=== PATIENT | female | born 1955 | race Caucasian/White ===

== ENCOUNTER 2022-04-11 07:32 | Outpatient (CLI) | payer OTHER, SELFPAY ==
[2022-04-11 09:32] LABS: Albumin* 4.2 g/dL (3.3-5.0); Chloride* 107 mmol/L (96-114)
[2022-04-11 09:33] LABS: Potassium* 4.1 mmol/L (3.6-5.1); Sodium* 138 mmol/L (135-149)
[2022-04-11 09:35] LABS: Aspartate Amino Transferase* 28 U/L (12-35); Bilirubin Total* 1.1 mg/dL (0.1-1.5); Carbon Dioxide* 27 mmol/L (20-32); Cholesterol* 178 mg/dL (90-199); Creatinine* 0.6 mg/dL (0.5-1.5); Estimated Glomerular Filt Rate 100 ml/min; Total Protein* 6.6 g/dL (6.0-8.3)
[2022-04-11 09:36] LABS: Alanine Aminotransferase* 20 U/L (4-35); Alkaline Phosphatase* 58 U/L (40-150); Blood Urea Nitrogen* 13 mg/dL (7-30); Calcium* 9.4 mg/dL (8.4-10.6); Glucose* 93 mg/dL (60-115); HDL Cholesterol* 87 mg/dL (>=50); LDL Cholesterol Calculated 78 mg/dL (<100); Triglycerides* 64 mg/dL (40-149)
== END 2022-04-11 07:33 | disposition home or self-care (01) ==
LOC: NFLDREF 07:32
PROVIDERS: PCP Family Medicine; Visit Provider Family Medicine
DX: Z00.00 Encounter for general adult medical examination without abnormal findings (principal); I10 Essential (primary) hypertension; E78.5 Hyperlipidemia, unspecified
CPT/HCPCS: 80053; 80061

== ENCOUNTER 2022-05-13 12:51 | Outpatient (CLI) | payer OTHER, SELFPAY ==
--- NOTE | 2022-05-13 13:00 | CRLHL7_ITS ---
For Patients: As a result of the Cures Act, medical imaging exams and procedure reports are released immediately into your electronic medical record. You may view this report before your referring provider. If you have questions, please contact your health care provider. BILATERAL SCREENING MAMMOGRAM WITH COMPUTER-AIDED DETECTION AND TOMOSYNTHESIS TECHNIQUE: CC and MLO views were obtained. These mammographic images have been obtained using full-field digital technique. These mammographic images were interpreted with the benefit of computer-aided detection. Breast Tomosynthesis was used in this interpretation. COMPARISON FILM: 05/01/21, 04/28/20, 04/26/19 FINDINGS: There are scattered areas of fibroglandular density IMPRESSION: There is no radiographic evidence for malignancy. ASSESSMENT: BI-RADS Category 1: Negative RECOMMENDATION: Routine screening mammogram in 1 year. A lay language report of this examination will be provided to the patient. Sunday Parnell M.D. Diagnostic Radiologist [email or web address] Transcribed: 2:52 p.mAmelia reyes/Dictated by: Sunday Parnell MD @ 05/14/2022 9:52:00 AM (Electronically Signed)
== END 2022-05-13 12:52 | disposition home or self-care (01) ==
LOC: MAMMO 12:52
PROVIDERS: PCP Family Medicine; Visit Provider Family Medicine
DX: Z12.31 Encounter for screening mammogram for malignant neoplasm of breast (principal)
CPT/HCPCS: 77063; 77067

== ENCOUNTER 2023-05-09 08:22 | Outpatient (CLI) | payer MEDICARE, BC, SELFPAY | END 2023-05-09 08:23 | disposition home or self-care (01) | PROVIDERS: PCP Family Medicine; Referring Provider Family Medicine; Visit Provider Family Medicine | DX: E78.5 Hyperlipidemia, unspecified (principal); I10 Essential (primary) hypertension; Z13.29 Encounter for screening for other suspected endocrine disorder | CPT/HCPCS: 80053; 80061; 84443 ==

== ENCOUNTER 2023-05-14 09:59 | Outpatient (CLI) | payer MEDICARE, BC, SELFPAY ==
--- NOTE | 2023-05-14 10:15 | MM_ITS ---
Final Report Patient: ANGELA PENA Facility:?[facility] Patient ID:?[id number] Site Patient ID:?[id number] Site :?[id number] Study:?XRay Breast Bilateral 3D W/CAD-05/14/2023 12:01:20 PM Ordering Physician:?Chloé Echevarria Final Report: BILATERAL DIGITAL TOMOSYNTHESIS SCREENING MAMMOGRAM WITH COMPUTER-AIDED DETECTION CLINICAL HISTORY: Routine screening exam. COMPARISON: 05/13/2022, 05/01/2021, 04/28/2020, 04/26/2019 TECHNIQUE: Digital tomosynthesis mammogram in CC and MLO projections including computer- aided detection (CAD). BREAST COMPOSITION: Scattered fibroglandular densities. FINDINGS: RIGHT Breast: Normal breast tissue. No masses or achritectural distortion. No suspicious calcifications or adenopathy. LEFT Breast: Normal breast tissue. No masses or achritectural distortion. No suspicious calcifications or adenopathy. IMPRESSION: No suspicious findings. RECOMMENDATIONS: Annual bilateral screening mammography. BI-RADS category 1. Negative. Dictated by Sunday Parnell MD @ 05/16/2023 11:52:07 AM (Electronic Signature)
--- NOTE | 2023-05-14 14:30 | XR_ITS ---
Patient: ANGELA PENA Facility:?[facility] Patient ID:?[id number] Site Patient ID:?[id number]. Site :?1955 Study:?DEXA-Bone Density -05/14/2023 10:48:37 AM Ordering Physician:TRU Final Report: DXA BONE MINERAL DENSITY STUDY Reason for exam: Asymptomatic menopausal state. Current height (in): 59. Weight (lb): 160. Menopause age: 52. Ethnicity: White. 1. Have you had a previous hip or vertebral fracture? No. 2. Have you had any fractures during your adult life which did not result from significant trauma (e.g., auto accident? No. 3. Did either of your parents have a hip fracture? No. 4. Do you smoke? No. 5. Have you ever taken Glucocorticoids? No. 6. Do you have rheumatoid arthritis? No. 7. Do you have secondary osteoporosis? No. 8. Do you drink 3 or more alcoholic drinks per day? Yes. 9. Are you being treated for osteoporosis? No. 10. Have you ever taken any of the following medications: Actonel, Evista, Fosamax, Miacalcin, Reclast, Boniva, Forteo, HRT (i.e., estrogen/hormone therapy), Protelos, Prolia, Vitamin D, Calcium, other ? please specify. ANSWER: No. 11. Do you have any of the following medical conditions: Anorexia or bulimia, asthma or emphysema, end stage renal disease, hyperparathyroidism, any seizure disorders, cancer, inflammatory bowel diseases, hysterectomy, other ? please specify. ANSWER: No. 12. What was your maximum height (inches)? 60. 13. Do you perform weight bearing exercise regularly? Yes. 14. Do you regularly consume dairy products? Yes. 15. Do you drink caffeinated beverages? Yes. If female: 16. At what age did your period start? 14. 17. Are you premenopausal? No. 18. How many full-term pregnancies have you had? 3. 19. Have you ever missed your period for more than 6 months in a row (not including or menopause)? No. TECHNIQUE: Bone mineral density study was performed using the [employer] [place]. FINDINGS: The results of the study expressed as bone mineral density (BMD) are as follows: Lumbar spine L1 to L4: BMD: 0.835 g/cm2. T-score: -1.9. Z-score: -0.1 Neck Left: BMD: 0.602 g/cm2. T-score: -2.2. Z-score: -0.7 Right: BMD: 0.651 g/cm2. T-score: -1.8. Z-score: -0.2 Total Left: BMD: 0.806 g/cm2. T-score: -1.1. Z-score: 0.1 Right: BMD: 0.865 g/cm2. T-score: -0.6. Z-score: 0.6 IMPRESSION: Osteopenia. FRAX 10-year Fracture Risk Major Osteoporotic Fracture: 13% Hip Fracture: 2.6% Reported Risk Factors: [place] () Neck BMD=0.602, BMI=32.3, alcohol use Dictated by: Sunday Parnell MD @05/20/2023 8:21:17 AM jj/Dictated by: Sunday Parnell MD @ 05/20/2023 8:21:00 AM Signed by:?Sunday Parnell MD @05/25/2023 6:25:53 AM (Electronic Signature)
== END 2023-05-14 10:00 | disposition home or self-care (01) ==
PROVIDERS: PCP Family Medicine; Visit Provider Family Medicine
DX: Z12.31 Encounter for screening mammogram for malignant neoplasm of breast (principal); Z78.0 Asymptomatic menopausal state; M85.88 Other specified disorders of bone density and structure, other site; R00.2 Palpitations
CPT/HCPCS: 77063; 77067; 77080; 93306

== ENCOUNTER 2023-05-26 07:37 | Outpatient (CLI) | payer MEDICARE, BC, SELFPAY | END 2023-05-26 07:38 | disposition home or self-care (01) | LOC: NFLDREF 06-05 07:33 | PROVIDERS: PCP Family Medicine; Referring Provider Family Medicine; Visit Provider Family Medicine | DX: I10 Essential (primary) hypertension (principal) | CPT/HCPCS: 80048 ==

== ENCOUNTER 2024-06-08 08:28 | Outpatient (CLI) | payer MEDICARE, BC, SELFPAY | END 2024-06-08 08:29 | disposition home or self-care (01) | LOC: NFLDREF 06-10 07:22 | PROVIDERS: PCP Family Medicine; Referring Provider Family Medicine; Visit Provider Family Medicine | DX: I10 Essential (primary) hypertension (principal); E78.5 Hyperlipidemia, unspecified; M85.80 Other specified disorders of bone density and structure, unspecified site | CPT/HCPCS: 80053; 80061; 82306 ==

== ENCOUNTER 2024-06-08 08:30 | Outpatient (CLI) | payer MEDICARE, BC, SELFPAY ==
--- NOTE | 2024-06-08 09:15 | CRLHL7_ITS ---
For Patients: As a result of the Century Cures Act, medical imaging exams and procedure reports are released immediately into your electronic medical record. You may view this report before your referring provider. If you have questions, please contact your health care provider. BILATERAL SCREENING MAMMOGRAM WITH COMPUTER-AIDED DETECTION AND TOMOSYNTHESIS TECHNIQUE: CC and MLO views were obtained. These mammographic images have been obtained using full-field digital technique. These mammographic images were interpreted with the benefit of computer-aided detection. Breast Tomosynthesis was used in this interpretation. COMPARISON FILM: 05/14/23, 05/13/22, 05/01/21. FINDINGS: There are scattered areas of fibroglandular density IMPRESSION: There is no radiographic evidence for malignancy. ASSESSMENT: BI-RADS Category 1: Negative RECOMMENDATION: Routine screening mammogram in 1 year. A lay language report of this examination will be provided to the patient. Sunday Parnell M.D. Diagnostic Radiologist [email or web address] Transcribed: 2:19 p.mAmelia reyes/Dictated by: Sunday Parnell MD @ 06/08/2024 9:07:00 AM (Electronically Signed)
== END 2024-06-08 08:31 | disposition home or self-care (01) ==
LOC: MAMMO 08:31
PROVIDERS: PCP Family Medicine; Visit Provider Family Medicine
DX: Z12.31 Encounter for screening mammogram for malignant neoplasm of breast (principal)
CPT/HCPCS: 77063; 77067

== ENCOUNTER 2024-09-29 07:32 | Outpatient (CLI) | payer MEDICARE, BC, SELFPAY | END 2024-09-29 07:33 | disposition home or self-care (01) | LOC: NFLDREF 10-03 06:29 | PROVIDERS: PCP Family Medicine; Referring Provider Family Medicine; Visit Provider Family Medicine | DX: R74.01 Elevation of levels of liver transaminase levels (principal); R73.01 Impaired fasting glucose; I10 Essential (primary) hypertension; E78.5 Hyperlipidemia, unspecified; M85.80 Other specified disorders of bone density and structure, unspecified site; Z11.59 Encounter for screening for other viral diseases | CPT/HCPCS: 80053; 82306; 82977; 86803; 87340 ==